=== PATIENT | female | born 2000 | race Asian ===

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

== ENCOUNTER 2024-05-29 15:44 | Emergency (ER) | payer OTHER ==
[~2024-05-29] VITALS: Ht 180.3 cm; Wt 77.1 kg
[2024-05-29 16:00] VITALS: BP 133/81; PULSE 76; RESP 15; TEMP 98.3; O2SAT 98
[2024-05-29 16:22] VITALS: O2SAT 98
--- NOTE | 2024-05-29 16:22 | NUR ---
24YO F PRESENTS FOR EVALUATION OF RLQ ABD PAIN RADIATING TO LLQ ABD PAIN 6/10, NAUSEA X 2WEEKS. DENIES FEVER, CHILLS, V, D, CP, INJURY, URINARY SYMPTOMS. AOX4, AMBULATORY, VSS, HR EVEN/REGULAR, BILAT LUNG CLR, SKIN INTACT/DRY/WARM, NAD, SAFETY MAINTAINED, CALL LIGHT IN REACH. HX: DENIES NKA
[2024-05-29 16:30] VITALS: O2SAT 98
--- NOTE | 2024-05-29 16:31 | NUR ---
PT TAKEN TO RADIOLOGY VIA WHEELCHAIR
[2024-05-29 17:07] LABS: APPEARANCE,URINE CLEAR (CLEAR); BILIRUBIN,URINE NEGATIVE (NEGATIVE); BLOOD, URINE NEGATIVE (NEGATIVE); COLOR,URINE YELLOW (YELLOW); LEUKOCYTE ESTERASE ,URINE NEGATIVE (NEGATIVE); NITRITE, URINE NEGATIVE (NEGATIVE); PROTEIN,URINE NEGATIVE (NEGATIVE); UGLUCOSE NEGATIVE (NEGATIVE); UROBILINOGEN,URINE 0.2 EU/dL (0.2 - 1)
[2024-05-29 17:09] LABS: BASOPHILS % (AUTO) 0.5 % (0.0-2.0); EOSINOPHILS # (AUTO) 0.1 K/uL (0-0.4); HEMATOCRIT 39.6 % (36-48); HEMOGLOBIN 12.7 g/dL (12.0-16.0); LYMPHOCYTES % (AUTO) 28.3 % (20.5-51.1); MEAN CORPUSCULAR HEMOGLOBIN 27 pg (27-31); MEAN CORPUSCULAR HGB CONC 32 g/dL (33-37); MEAN CORPUSCULAR VOLUME 83.2 fL (80-94); MONOCYTES # (AUTO) 0.4 K/uL (0.8-1.0); MONOCYTES % (AUTO) 5.6 % (1.7-9.3); NEUTROPHILS # (AUTO) 4.5 K/uL (1.8-7.7); NEUTROPHILS % (AUTO) 63.6 % (42.2-75.2); PLATELET COUNT (AUTO) 294 K/uL (140-450); RED BLOOD CELL COUNT(AUTO) 4.76 MIL/uL (4.20-5.40); RED CELL DISTRIBUTION WIDTH 13.4 % (11.6-13.7); WHITE BLOOD COUNT (AUTO) 7.1 K/uL (4.8-10.8)
[2024-05-29 17:30] LABS: ANION GAP 14.7 (8-16); CALCIUM 8.5 mg/dL (8.5-10.1); CARBON DIOXIDE 24.7 mmol/L (21-32); CREATININE 0.7 mg/dL (0.6-1.3); POTASSIUM 3.4 mmol/L (3.5-5.1)
[2024-05-29 17:31] LABS: ALBUMIN 3.7 g/dL (3.4-5.0); BILIRUBIN,DIRECT 0.1 mg/dL (0.0-0.3); TOTAL BILIRUBIN 0.3 mg/dL (0.0-1.0); TOTAL PROTEIN, SERUM 7.8 g/dL (6.4-8.2)
--- NOTE | 2024-05-29 17:58 | NUR ---
Patient discharged with v/s stable. Written and verbal after care instructions given and explained. Patient verbalized understanding. Ambulatory with steady gait. All questions addressed prior to discharge. Advised to follow up with PMD.
--- NOTE | 2024-05-29 18:00 | NUR ---
Chart checked and completed. The patient's care was reviewed and supervised by MARLA DALE RN.
== END 2024-05-29 17:58 | disposition home or self-care (01) ==
LOC: MED 15:44
DX: R10.31 Right lower quadrant pain (principal); R10.32 Left lower quadrant pain; R11.0 Nausea; R03.0 Elevated blood-pressure reading, without diagnosis of hypertension
CPT/HCPCS: 36415; 80048; 80076; 81003; 81025; 83690; 85025; 99284